=== PATIENT | male | born 1995 | race Caucasian/White ===

== ENCOUNTER → 2016-06-20 | Emergency (ER) | payer SELFPAY ==
[~2016-06-20] MED LIST: HYDROCOD/APAP 5/325 PREPACK#6 BTL TAKEHOME ONE; IBUPROFEN 200 MG TAB PO ONE; TETANUS IMMUNE GLOBULIN/PF 250 UNIT SYR IM ONE
--- NOTE | 2016-06-20 16:38 | UCPHY ---
H & P Patient Type: New Time Seen by Provider: 06/20/16 16:20 HPI/ROS: CHIEF COMPLAINT: Abrasion, ankle fracture HISTORY OF PRESENT ILLNESS: The patient is a 20-year-old man who comes to the Urgent Care originally with a prescription to get a tetanus immunoglobulin. He was seen at a another urgent care and diagnosed with a closed distal fibular fracture that is already been placed in a splint. He also had road rash to his left knee. He has never received tetanus vaccination. He received the vaccine there and was sent here for immunoglobulin. Originally he was not planning to be seen here as a patient but then he began having increasing pain and was requesting pain medication and agreed to be seen. REVIEW OF SYSTEMS: Constitutional: denies: chills, fever, recent illness, recent injury EENTM: denies: blurred vision, double vision, nose congestion Respiratory: denies: cough, shortness of breath Cardiac: denies: chest pain, irregular heart rate, lightheadedness, palpitations Gastrointestinal/Abdominal: denies: abdominal pain, diarrhea, nausea, vomiting, blood streaked stools Genitourinary: denies: dysuria, frequency, hematuria, pain Musculoskeletal: See HPI Skin: denies: lesions, rash, jaundice, bruising Neurological: denies: headache, numbness, paresthesia, tingling, dizziness, weakness Hematologic/Lymphatic: denies: blood clots, easy bleeding, easy bruising Immunologic/allergic: denies: HIV/AIDS, transplant EXAM: GENERAL: Well-appearing, well-nourished and in no acute distress. HEAD: Atraumatic, normocephalic. EYES: Pupils equal round and reactive to light, extraocular movements intact, sclera anicteric, conjunctiva are normal. ENT: TMs normal, nares patent, oropharynx clear without exudates. Moist mucous membranes. NECK: Normal range of motion, supple without lymphadenopathy or JVD. LUNGS: Breath sounds clear to auscultation bilaterally and equal. No wheezes rales or rhonchi. HEART: Regular rate and rhythm without murmurs, rubs or gallops. ABDOMEN: Soft, nontender, normoactive bowel sounds. No guarding, no rebound. No masses appreciated. BACK: No CVA tenderness, no spinal tenderness, step-offs or deformities EXTREMITIES: Left leg in splint. Left knee with road rash, and dressed with sterile dressing. NEUROLOGICAL: Cranial nerves II through XII grossly intact. Normal speech, normal gait. 5/5 strength, normal movement in all extremities, normal sensation PSYCH: Normal mood, normal affect. SKIN: See extremity Source: Patient, Family Exam Limitations: No limitations - Medical/Surgical History Hx Asthma: No Hx Chronic Respiratory Disease: No Hx Diabetes: No Hx Cardiac Disease: No Hx Renal Disease: No Hx Cirrhosis: No Hx Alcoholism: No - Family History Significant Family History: Hypertension - Social History Smoking Status: Never smoked Alcohol Use: Sober Drug Use: None Constitutional: Initial Vital Signs Temperature (C) 36.4 C 06/20/16 15:45 Heart Rate 88 06/20/16 15:45 Respiratory Rate 16 06/20/16 15:45 Blood Pressure 112/72 06/20/16 15:45 O2 Sat (%) 96 06/20/16 15:45 O2 Delivery Mode Room Air Allergies/Adverse Reactions: No Known Allergies Allergy (Verified 06/20/16 17:21) Home Medications: Medication Instructions Recorded Hydrocodone/APAP 5/325 [[place] 1 - 2 tab PO Q6H PRN #20 tab 06/20/16 5/325 (*)] Medical Decision Making ED Course/Re-evaluation: The patient's wound was only partially viewed because it was dressed with sterile dressings and they would rather not address it. He was given immune globulin here and requested pain medication. After discussion we agreed to start him on Vicodin and give him prescription for the same. We discussed using it sparingly. Differential Diagnosis: Partial list of the Differential diagnosis considered include but were not limited to; abrasion, fracture, pain management and although unlikely based on the history and physical exam, I also considered infection, foreign body. I discussed these differential diagnoses and the plan with the patient as well as the usual and expected course. The patient understands that the diagnosis is provisional and that in medicine we are not always correct and that further workup is often warranted. Usual and customary warnings were given. All of the patient's questions were answered. The patient was instructed to return to the emergency department should the symptoms at all worsen or return, otherwise to followup with the physician as we discussed. - Data Points Medications Given: Discontinued Medications Hydrocodone Bitart/Acetaminophen ([place] 5/325mg Prepack#6) 1 btl TAKEHOME EDNOW ONE Stop: 06/20/16 16:42 Last Admin: 06/20/16 16:45 Dose: 1 btl Departure - Departure Disposition: Home, Routine, Self-Care Clinical Impression: Abrasion Fibula fracture Qualifiers: Encounter type: subsequent encounter Fibula location: distal Fracture type: closed Fracture morphology: other fracture Laterality: left Fracture healing: with routine healing Qualified Code(s): S82.832D - Other fracture of upper and lower end of left fibula, subsequent encounter for closed fracture with routine healing Condition: Fair Instructions: Ankle Fracture (ED), Abrasion (ED) Referrals: NONE *PRIMARY CARE P,. [Primary Care Provider] - As per Instructions Ingris Baker MD [Medical Doctor] - As per Instructions Prescriptions: Hydrocodone/APAP 5/325 [[place] 5/325 (*)] 1 - 2 tab PO Q6H PRN #20 tab PRN Reason: Pain, Moderate - PQRS PQRS Measurement: Not applicable
[2016-06-20 18:15] VITALS: BP 112/72; PULSE 88; RESP 16; TEMP 97.5; O2SAT 96
== END | disposition home or self-care (01) ==
LOC: CED 15:32
DX: S82.832A Other fracture of upper and lower end of left fibula, initial encounter for closed fracture (principal); X58.XXXA Exposure to other specified factors, initial encounter; Z23 Encounter for immunization
CPT/HCPCS: 99204-PO; G0463-PO; J1670